=== PATIENT | male | born 1945 | race Caucasian/White ===

== ENCOUNTER 2018-06-14 12:06 | Day surgery (SDC) | payer MEDICARE, OTHER ==
[~2018-06-14] VITALS: Ht 170.2 cm; Wt 105.8 kg
[2018-06-14] VITALS (9 sets, daily range): BP systolic 122–178; BP diastolic 56–85
[2018-06-14] MEDS ORDERED: diphenhydrAMINE 25mg capsule PO PRN (12:45)
[2018-06-14] MEDS ORDERED: sod bicarbonate 150mEq in D5W 1,150 ML IV ONE (12:45)
[2018-06-14 13:53] LABS: ALBUMIN 3.2 G/DL (3.4-5.0); ANION GAP 9 (8-16); BLOOD UREA NITROGEN 15 MG/DL (7-18); CALCIUM 8.7 MG/DL (8.5-10.1); CHLORIDE 102 MMOL/L (99-107); GLUCOSE 172 MG/DL (70-104); INR 1.1 INR; MAGNESIUM 2.2 MG/DL (1.5-2.4); POTASSIUM 4.5 MMOL/L (3.5-5.1); PROTHROMBIN TIME 11.5 SECONDS (9.0-12.0); SODIUM 139 MMOL/L (135-145); TOTAL CARBON DIOXIDE 28.5 MMOL/L (24-32); eGFR 73 ML/MIN
[2018-06-14 13:58] LABS: BASOPHILS % (AUTO) 0.5 % (0-1); EOSINOPHILS # (AUTO) 0.2 X10'3 (0-0.9); HEMATOCRIT 28.1 % (42.0-52.0); LYMPHOCYTES # (AUTO) 1.4 X10'3 (1.1-4.8); MEAN CORPUSCULAR HEMOGLOBIN 31.7 PG (27.0-31.0); MEAN CORPUSCULAR HGB CONC 32.1 % (33.0-36.5); MEAN CORPUSCULAR VOLUME 98.8 FL (78-98); MEAN PLATELET VOLUME 8.9 FL (7.4-10.4); MONOCYTES # (AUTO) 0.5 X10'3 (0-0.9); MONOCYTES % (AUTO) 9.6 % (2-12); NEUTROPHILS # (AUTO) 3.3 X10'3 (1.8-7.7); NEUTROPHILS % (AUTO) 60.9 % (42-75); PLATELET COUNT 137 X10'3 (140-440); RED BLOOD COUNT 2.85 X10'6 (4.70-6.10); RED CELL DISTRIBUTION WIDTH 16.7 % (11.5-14.5); WHITE BLOOD COUNT 5.4 X10'3 (4.5-11.0)
[2018-06-14] MEDS ORDERED: ALPR-624 PO (14:00)
[2018-06-14] MEDS ORDERED: ALLO300T8 PO (14:00)
[2018-06-14] MEDS ORDERED: FERR325T35 PO (14:00)
[2018-06-14] MEDS ORDERED: ALIR150P (14:00)
[2018-06-14] MEDS ORDERED: DAPA5TAB PO (14:00)
[2018-06-14] MEDS ORDERED: LEVO25TA2 PO (14:00)
[2018-06-14] MEDS ORDERED: METO50TA7 PO (14:00)
[2018-06-14] MEDS ORDERED: OXYC-145 PO (14:00)
[2018-06-14] MEDS ORDERED: MONT10TA21 PO (14:00)
[2018-06-14] MEDS ORDERED: CLOP75TA15 PO (14:00)
[2018-06-14] MEDS ORDERED: ASPI-611 PO (14:00)
[2018-06-14] MEDS ORDERED: GABA300C PO (14:00)
[2018-06-14] MEDS ORDERED: LISI2.5T2 PO (14:00)
[2018-06-14] MEDS ORDERED: METF500T PO (14:00)
[2018-06-14] MEDS ORDERED: CHOL50004 PO (14:00)
[2018-06-14] MEDS ORDERED: GUAI200T5 (14:00)
[2018-06-14] MEDS ORDERED: ALBU8.5H8 IH (14:00)
[2018-06-14] MEDS ORDERED: ONDA4TAB6 PO (14:00)
[2018-06-14] MEDS ORDERED: heparin 1,000unit/ml 10ml vial 10 ML ONE (14:34)
[2018-06-14] MEDS ORDERED: LIDOcaine 1% (10mg/ml)w/preservative injection 20ml MDV ONE (14:34)
[2018-06-14] MEDS ORDERED: iohexol 350 MG/1 ML 200ml bottle ONE (14:54)
[2018-06-14] MEDS ORDERED: proCHLORperazine 10 MG/2 ml inj ONE (14:57)
[2018-06-14] MEDS ORDERED: midazolam 2 mg/2 ml injection ONE (14:58)
[2018-06-14] MEDS ORDERED: fentaNYL/PF 50MCG/1 ML 2ML syringe ONE (14:58)
[2018-06-14] MEDS ORDERED: iohexol 350MG/ML 100ml bottle IV ONE (15:17)
== END 2018-06-14 19:30 | disposition home or self-care (01) ==
LOC: SSTAY O 12:06
PROVIDERS: ATTEND Internal Medicine Cardiovascular Disease
DX: I70.213 Atherosclerosis of native arteries of extremities with intermittent claudication, bilateral legs (principal); I25.10 Atherosclerotic heart disease of native coronary artery without angina pectoris; I10 Essential (primary) hypertension; E78.5 Hyperlipidemia, unspecified; J45.998 Other asthma; G47.33 Obstructive sleep apnea (adult) (pediatric); E03.9 Hypothyroidism, unspecified; J44.9 Chronic obstructive pulmonary disease, unspecified; M19.90 Unspecified osteoarthritis, unspecified site; E11.9 Type 2 diabetes mellitus without complications; H91.8X3 Other specified hearing loss, bilateral; Z87.891 Personal history of nicotine dependence; Z87.442 Personal history of urinary calculi; Z85.828 Personal history of other malignant neoplasm of skin; Z72.89 Other problems related to lifestyle; Z92.21 Personal history of antineoplastic chemotherapy; Z90.49 Acquired absence of other specified parts of digestive tract; Z86.79 Personal history of other diseases of the circulatory system; Z79.84 Long term (current) use of oral hypoglycemic drugs; Z79.01 Long term (current) use of anticoagulants; Z79.82 Long term (current) use of aspirin; Z95.5 Presence of coronary angioplasty implant and graft; Z79.891 Long term (current) use of opiate analgesic; Z88.0 Allergy status to penicillin; Z88.2 Allergy status to sulfonamides; Z88.8 Allergy status to other drugs, medicaments and biological substances; Z79.899 Other long term (current) drug therapy; Z98.890 Other specified postprocedural states; Z82.49 Family history of ischemic heart disease and other diseases of the circulatory system; Z80.9 Family history of malignant neoplasm, unspecified
CPT/HCPCS: 36415; 37224; 75716; 80048; 82948; 83735; 85025; 85610; 93005; 99152; 99153; A6257; C1760; J0780; J1644; J2001; J2250; J3010; Q0163; Q9967; 37246; A4620; C1725; C1769; C1894; C2623

== ENCOUNTER 2018-07-16 07:58 | Day surgery (SDC) | payer MEDICARE, OTHER ==
[~2018-07-16] VITALS: Ht 172.7 cm; Wt 104.1 kg
[2018-07-16] VITALS (17 sets, daily range): BP systolic 127–170; BP diastolic 47–92
[~2018-07-16 07:58] MED LIST: ALBU8.5H8 IH; ALIR150P; ALLO300T8 PO; ALPR-624 PO; ASPI-611 PO; CHOL50004 PO; CLOP75TA15 PO; DAPA5TAB PO; DOCUMENT DATE & TIME OF BETA-BLOCKER PO ONE; FERR325T35 PO; GABA300C PO; GUAI200T5; LEVO25TA2 PO; LISI2.5T2 PO; METF500T PO; METO50TA7 PO; MONT10TA21 PO; ONDA4TAB6 PO; OXYC-145 PO; diphenhydrAMINE 25mg capsule PO PRN; famotidine 20mg tablet PO ONE; ringers solution, lacted 1,000 ML IV SCH; sod bicarbonate 150mEq in D5W 1,150 ML IV ONE
[2018-07-16] MEDS ORDERED: fentaNYL/PF 50MCG/1 ML 2ML syringe ONE ×2 (08:37→09:28)
[2018-07-16] MEDS ORDERED: heparin 1,000unit/ml 10ml vial 10 ML ONE (08:38)
[2018-07-16] MEDS ORDERED: midazolam 2 mg/2 ml injection ONE (08:38)
[2018-07-16] MEDS ORDERED: iohexol 350 MG/1 ML 200ml bottle ONE (08:38)
[2018-07-16] MEDS ORDERED: LIDOcaine 1% (10mg/ml)w/preservative injection 20ml MDV ONE (08:38)
[2018-07-16] MEDS ORDERED: ASCO1CAP4 PO (09:00)
[2018-07-16] MEDS ORDERED: MAGN400C PO (09:00)
[2018-07-16 09:15] LABS: BASOPHILS % (AUTO) 0.8 % (0-1); EOSINOPHILS # (AUTO) 0.2 X10'3 (0-0.9); EOSINOPHILS % (AUTO) 4.4 % (0-6); LYMPHOCYTES % (AUTO) 27.1 % (21-51); MEAN CORPUSCULAR HEMOGLOBIN 32.6 PG (27.0-31.0); MEAN CORPUSCULAR HGB CONC 32.1 g/dL (33.0-36.5); MEAN CORPUSCULAR VOLUME 101.5 FL (78-98); MEAN PLATELET VOLUME 9.4 FL (7.4-10.4); MONOCYTES # (AUTO) 0.5 X10'3 (0-0.9); MONOCYTES % (AUTO) 12.6 % (2-12); NEUTROPHILS # (AUTO) 2.1 X10'3 (1.8-7.7); NEUTROPHILS % (AUTO) 55.1 % (42-75); RED BLOOD COUNT 3.35 X10'6 (4.70-6.10)
[2018-07-16 09:20] LABS: PRE OP HEMOGLOBIN 10.9 g/dL (14.0-17.9); PRE OP PLATELET COUNT 100 X10'3 (140-440)
[2018-07-16 09:22] LABS: PRE OP PROTIME 11.3 SECONDS (9.0-12.0)
[2018-07-16 09:23] LABS: PRE OP INR 1.1 INR
[2018-07-16 09:26] LABS: ALBUMIN 3.2 G/DL (3.4-5.0); ALBUMIN/GLOBULIN RATIO 0.8 (1.1-1.5); ALKALINE PHOSPHATASE 70 IU/L (46-116); BLOOD UREA NITROGEN 20 MG/DL (7-18); BUN/CREATININE RATIO 17.5 (5.4-32.0); CALCIUM 8.8 MG/DL (8.5-10.1); CHLORIDE 103 MMOL/L (99-107); CREATININE 1.14 MG/DL (0.60-1.10); MAGNESIUM 2.2 MG/DL (1.5-2.4); PRE OP ALT 41 U/L (30-65); PRE OP ANION GAP 7 (8-16); PRE OP AST 45 U/L (10-37); PRE OP BILIRUB, TOTAL 0.6 MG/DL (0.0-1.0); PRE OP SODIUM 139 MMOL/L (135-145); TOTAL CARBON DIOXIDE 28.8 MMOL/L (24-32); TOTAL PROTEIN 7.1 G/DL (6.4-8.2); eGFR 63 ML/MIN
[2018-07-16 09:27] LABS: PRE OP GLUCOSE 231 MG/DL (70-104)
[2018-07-16] MEDS ORDERED: propofol inj 20 ML IV ONE (09:28)
[2018-07-16] MEDS ORDERED: LIDOcaine 2% (20mg/ml) 5ml vial ONE (09:28)
[2018-07-16] MEDS ORDERED: insulin regular, human vial - multi-dose ONE (09:31)
[2018-07-16] MEDS ORDERED: ePHEDrine 50MG/ML INJ. ONE (09:40)
[2018-07-16] MEDS ORDERED: rocuronium 10mg/ml inj IV ONE (09:40)
[2018-07-16] MEDS ORDERED: glycopyrrolate 0.2mg/ml inj ONE (09:40)
[2018-07-16] MEDS ORDERED: neostigmine methylsulfate 1 MG/ML 10ml vial ONE (09:40)
[2018-07-16] MEDS ORDERED: sevoflurane 250ml liquid IH ONE (09:40)
[2018-07-16] MEDS ORDERED: PHENYLEPHRINE 10MG IN 250ML NS IV SCH (10:15)
--- NOTE | 2018-07-16 10:53 | NUR ---
Received from OR via [facility] , accompanied by Anesthesiologist RAMAN and report given by Anesthesiolgist. PATIENT WITH FEMSTOP TO LEFT GROIN AREA. SITE IS CDI. FEMSTOP TO LEFT GROIN AT 65 MM HG. FOOT PWD, 18G PIV IN RIGHT ACACCUCHECK OF 168 UPON ARRIVAL. DENIES PAIN AND VSS. Addendum: 07/16/18 at 1139 by Van Salter RN, RN Amended: Links added.
[2018-07-16] MEDS ORDERED: ringers solution, lacted 1,000 ML IV SCH (11:05)
[2018-07-16] MEDS ORDERED: ondansetron/PF 4mg/2ml inj IV PRN (11:05)
[2018-07-16] MEDS ORDERED: morphine 4 MG/ML inj SYRINge IV PRN (11:05)
[2018-07-16] MEDS ORDERED: HYDROmorphone inj. 0.5 MG/0.5 ML DISP.SYRIN IV PRN (11:05)
--- NOTE | 2018-07-16 12:13 | NUR ---
ALL DC CRITERIA HAS BEEN MET. LEFT INGUINAL AREA IS CDI FEM STOP STILL AT 62 MM HG. NO SIGNS OF BLEEDING. IV INTACT AND PATIENT DENIES PAIN. VSS. GINNA SMITH TOOK PATIENT DOWN TO SHORT STAY. ESCORTED WITH VOLUNTEER TO SHORT STAY. REPORT GIVEN TO MAVIS Herrera RN IN SHORT STAY. ALL QUESTIONS ANSWERED. CARE TURNED OVER. Addendum: 07/16/18 at 1219 by Van Smith - GINNA CHACKO Amended: Links added.
--- NOTE | 2018-07-16 12:13 | NUR ---
168 BLOOD GLUCOSE UPON ARRIVAL AT 1053 Addendum: 07/16/18 at 1214 by Van Salter RN RN Amended: Links added.
== END 2018-07-16 16:45 | disposition home or self-care (01) ==
LOC: SSTAY O 07:58 → PAS 16:45
PROVIDERS: ATTEND Internal Medicine Cardiovascular Disease
DX: I70.213 Atherosclerosis of native arteries of extremities with intermittent claudication, bilateral legs (principal); I25.10 Atherosclerotic heart disease of native coronary artery without angina pectoris; I10 Essential (primary) hypertension; E78.5 Hyperlipidemia, unspecified; E03.9 Hypothyroidism, unspecified; E11.9 Type 2 diabetes mellitus without complications; J44.9 Chronic obstructive pulmonary disease, unspecified; G47.33 Obstructive sleep apnea (adult) (pediatric); Z87.19 Personal history of other diseases of the digestive system; Z79.84 Long term (current) use of oral hypoglycemic drugs; Z79.899 Other long term (current) drug therapy; E88.81 Metabolic syndrome and other insulin resistance; Z90.49 Acquired absence of other specified parts of digestive tract; Z98.890 Other specified postprocedural states; Z82.49 Family history of ischemic heart disease and other diseases of the circulatory system; Z87.891 Personal history of nicotine dependence; Z72.89 Other problems related to lifestyle; Z88.0 Allergy status to penicillin; Z88.2 Allergy status to sulfonamides; Z88.8 Allergy status to other drugs, medicaments and biological substances; Z95.5 Presence of coronary angioplasty implant and graft; K21.9 Gastro-esophageal reflux disease without esophagitis; E66.9 Obesity, unspecified; Z68.38 Body mass index [BMI] 38.0-38.9, adult
CPT/HCPCS: 36245; 36415; 80053; 82948; 83735; 85025; 85610; A6257; J1644; J2001; J2250; J2704; J2710; J3010; J7030; Q9967; C1769; C1894; J1815; J2370; J3490; J7120

== ENCOUNTER → 2018-08-03 | Day surgery (SDC) | payer MEDICARE, OTHER ==
[2018-07-30 14:49] LABS: BASOPHILS % (AUTO) 0.8 % (0-1); EOSINOPHILS # (AUTO) 0.2 X10'3 (0-0.9); EOSINOPHILS % (AUTO) 4.6 % (0-6); LYMPHOCYTES # (AUTO) 0.9 X10'3 (1.1-4.8); LYMPHOCYTES % (AUTO) 21.6 % (21-51); MEAN CORPUSCULAR HEMOGLOBIN 33.1 PG (27.0-31.0); MEAN CORPUSCULAR HGB CONC 33.1 g/dL (33.0-36.5); MEAN PLATELET VOLUME 8.9 FL (7.4-10.4); MONOCYTES # (AUTO) 0.4 X10'3 (0-0.9); MONOCYTES % (AUTO) 8.5 % (2-12); NEUTROPHILS # (AUTO) 2.8 X10'3 (1.8-7.7); NEUTROPHILS % (AUTO) 64.5 % (42-75); PRE OP HEMATOCRIT 34.9 % (42.0-52.0); PRE OP HEMOGLOBIN 11.6 g/dL (14.0-17.9); PRE OP PLATELET COUNT 113 X10'3 (140-440); RED BLOOD COUNT 3.49 X10'6 (4.70-6.10); RED CELL DISTRIBUTION WIDTH 16.5 % (11.5-14.5)
[2018-07-30 15:06] LABS: ALBUMIN 3.3 G/DL (3.4-5.0); ALBUMIN/GLOBULIN RATIO 0.8 (1.1-1.5); ALKALINE PHOSPHATASE 93 IU/L (46-116); BLOOD UREA NITROGEN 15 MG/DL (7-18); BUN/CREATININE RATIO 12.5 (5.4-32.0); CALCIUM 9.4 MG/DL (8.5-10.1); CHLORIDE 103 MMOL/L (99-107); PRE OP ALT 53 U/L (30-65); PRE OP ANION GAP 5 (8-16); PRE OP AST 55 U/L (10-37); PRE OP BILIRUB, TOTAL 0.4 MG/DL (0.0-1.0); PRE OP POTASSIUM 4.8 MMOL/L (3.4-5.1); PRE OP SODIUM 137 MMOL/L (135-145); TOTAL PROTEIN 7.5 G/DL (6.4-8.2); eGFR 59 ML/MIN
[2018-07-30 15:21] LABS: PRE OP GLUCOSE 275 MG/DL (70-104)
[~2018-08-03] VITALS: Ht 170.2 cm; Wt 100.7 kg
[2018-08-03] VITALS (8 sets, daily range): BP systolic 134–157; BP diastolic 59–77
[~2018-08-03] MED LIST changes: +ALB0.5UD IH; -ALIR150P; -ALLO300T8 PO; -ALPR-624 PO; +ASCO1CAP4 PO; -GUAI200T5; +LIDOcaine 1% (10mg/ml)w/preservative injection 20ml MDV ONE; +MAGN400C PO; -ONDA4TAB6 PO; +ePHEDrine 50MG/ML INJ. ONE; +fentaNYL/PF 50MCG/1 ML 2ML syringe ONE; +heparin 1,000unit/ml 10ml vial 10 ML ONE; +iohexol 350 MG/1 ML 200ml bottle ONE; +meperidine/PF 25mg/ml syringe IV PRN; +midazolam 2 mg/2 ml injection ONE; +morphine 4 MG/ML inj SYRINge IV PRN; +ondansetron/PF 4mg/2ml inj IV PRN; +proCHLORperazine 10 MG/2 ml inj IV PRN; +propofol inj 20 ML IV ONE; +rocuronium 10mg/ml inj IV ONE; +sevoflurane 250ml liquid IH ONE
[2018-08-03 13:35] LABS: INR 1.1 INR; PROTHROMBIN TIME 11.4 SECONDS (9.0-12.0)
--- NOTE | 2018-08-03 17:36 | NUR ---
Received from OR via [facility], accompanied by Anesthesiologist DR BOURNE and report given by Anesthesiologist. PT VERY DROWSY, VSS, LEFT GROIN W/DRSG SCANT AMT OF BLOOD DRAIAGE, SITE SOFT, NO S/S OF HEMATOMA, SWELLING OR OOZING, BILAT PEDAL/TIBAL PULSES DOPPLER 2+ QUALITY. Addendum: 08/03/18 at 1754 by Magaly Nava RN Amended: Links added.
--- NOTE | 2018-08-03 18:35 | NUR ---
received report from recovery room
--- NOTE | 2018-08-03 18:45 | NUR ---
pt arrived via gurney from recovery room, arrived in stable condition, a&o x 4, VS taken and stable, left groin insertion site dressing CDI with minimal serosanguinous drainage, no hematoma present. belongings not with pt, to be brought up by recovery room. will continue to monitor pt, with anticipated discharge time of 2029.
--- NOTE | 2018-08-03 18:46 | NUR ---
Report called to receiving nurse. Transferred in stable condition via [facility], 1 BAG OF PT Belongings, GLASSES, CANE SENT W/PT TO ROOM 315 FOR LATER DISCHARGE. Special Issues communicated to receiving nurse, YES. Addendum: 08/03/18 at 1855 by Magaly aNva RN Amended: Links added.
--- NOTE | 2018-08-03 20:58 | NUR ---
pt discharged to home, accompanied by , left via WC to private vehicle. all belongings accompanied pt at time of DC. PIV dc'd. left groin insertion site observed one final time, no hematoma present, dressing still CDI. peripheral pulses auscultated with doppler and present. discharge paperwork gone over with pt and signed accordingly. pt left in stable condition at time of DC.
== END | disposition home or self-care (01) ==
LOC: SSTAY O 12:04
PROVIDERS: ATTEND Internal Medicine Cardiovascular Disease
DX: I70.211 Atherosclerosis of native arteries of extremities with intermittent claudication, right leg (principal); I25.10 Atherosclerotic heart disease of native coronary artery without angina pectoris; I10 Essential (primary) hypertension; I25.118 Atherosclerotic heart disease of native coronary artery with other forms of angina pectoris; E78.5 Hyperlipidemia, unspecified; J45.909 Unspecified asthma, uncomplicated; G47.30 Sleep apnea, unspecified; E03.9 Hypothyroidism, unspecified; Z79.899 Other long term (current) drug therapy; Z79.82 Long term (current) use of aspirin; Z82.49 Family history of ischemic heart disease and other diseases of the circulatory system; Z88.0 Allergy status to penicillin; Z88.2 Allergy status to sulfonamides; Z88.8 Allergy status to other drugs, medicaments and biological substances; J44.9 Chronic obstructive pulmonary disease, unspecified; Z95.5 Presence of coronary angioplasty implant and graft; E11.9 Type 2 diabetes mellitus without complications; Z87.891 Personal history of nicotine dependence; K21.9 Gastro-esophageal reflux disease without esophagitis
CPT/HCPCS: 36415; 37226; 80053; 82948; 83735; 85025; 85610; A6257; C1876; J1644; J2001; J2250; J2704; J3010; Q0163; Q9967; C1725; C1769; C1894; C2623; J7120